=== PATIENT | male | born 1940 | race Caucasian/White ===

== ENCOUNTER 2020-07-20 14:44 | Emergency (ER) | payer MEDICARE, BC ==
[~2020-07-20] VITALS: Ht 177.8 cm; Wt 76.7 kg
--- NOTE | 2020-07-20 14:56 | NUR ---
ARRIVAL PT ARRIVED TO ED WITH C/O LEFT HAND/ARM PAIN. PT REPORTS 3 WEEKS AGO HE GOT A SPLINTER FROM A 2X4 IN HIS HAND AND WAS TREATED WITH ANTIBIOTICS FOR 1 WEEK WHICH HE COMPLETED ON SATURDAY. AREA TO HAND IS CLEAN AND NO S/S OF INFECTION NOTED. BEDSIDE MONITORS APPLIED. VITAL SIGNS STABLE. BED IN LOW LOCKED POSITION.
[2020-07-20 15:05] VITALS: BP_SYST 195; BP_SYST 197; BP_DIAS 82; BP_DIAS 92
[2020-07-20 15:11] VITALS: BP 195/92
--- NOTE | 2020-07-20 15:43 | NUR ---
SHAQUILLE PERDUE ON THE PHONE WITH DOCTOR CORBIN AT THIS TIME.
--- NOTE | 2020-07-20 15:56 | ER.PDOC ---
General Chief Complaint: Extremities Stated Complaint: HAND INJ Time seen by MD: 15:30 Source: patient Exam Limitations: no limitations History of Present Illness Initial Comments This 80-year-old white male was working with some wood and got a splinter in the ulnar aspect of his left hand. The splinter is just proximal to the metacarpophalangeal joint on the ulnar aspect of his hand. He did not go see anybody initially until it started getting red. Then he went to a local clinic where they put him on an antibiotic which he does not remember the name of. He stated that the redness went away very nicely but he still has persistent pain that shoots up his arm if you palpate this scar area. He thinks there are still a foreign body in there that is irritating something.On a quick exam, I actually agree with him I think there is a small splinter maybe about a half a centimeter long and I have a suspicion that it might be laying against the ulnar nerve that goes into his finger. Occurred: other (4-5 weeks) Recent Injury: Yes Where: home Severity: mild Exacerbated By: movement of (touch is most painful) Relieved By: nothing Quality: pain (this will shoot pain up his arm. 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 There is certainly something firm underneath the scar and you can actually push on it and get a little pointing to the skin. I am fairly convinced that he has a retained foreign body.) Skin: color nml, warm/dry Vascular: no vascular compromise Neuro/Psych: sensation nml, motor nml Central Exam: oriented X3, CN's nml as tested, nml speech, nml cognition, nml mood/affect Neck/Back: nml inspection Respiratory: no resp distress, breath sounds nml CVS: reg rate & rhythm, heart sounds nml Abdomen: non-tender, no organomegaly, nml bowels sounds Results/Orders Results/Orders Vital Signs Date Time Temp Pulse Resp B/P (MAP) Pulse Ox O2 Delivery O2 Flow Rate FiO2 07/20/20 15:11 97.9 58 18 195/92 (126) 96 Room Air 07/20/20 15:05 97.9 58 18 96 07/20/20 15:05 97.9 58 18 07/20/20 15:05 97.9 58 18 195/92 (126) 96 Room Air Progress Progress I spoke with Dr. Feldman and he will see the patient tomorrow at 1:00 in the clinic and make a decision on removing this potential foreign body or not. ER DEPART Departure Time of Disposition: 15:57 Disposition: 01 HOME, SELF-CARE Impression: Primary Impression: Puncture wound of left hand with foreign body Additional Impression: HTN (hypertension) Condition: Stable Referrals: PCP,UNKNOWN (PCP) PRIMARY CARE PROVIDER Duration or Time Spent with Pa: 20m Problem Qualifiers HANNY PERDUE MD Jul 20, 2020 15:56
[2020-07-20 16:01] VITALS: BP 181/94
== END 2020-07-20 16:06 | disposition home or self-care (01) ==
LOC: ER 14:44
DX: S61.442A Puncture wound with foreign body of left hand, initial encounter (principal); I10 Essential (primary) hypertension; I25.10 Atherosclerotic heart disease of native coronary artery without angina pectoris; W45.8XXA Other foreign body or object entering through skin, initial encounter; Y93.89 Activity, other specified; Y92.89 Other specified places as the place of occurrence of the external cause; Y99.0 Civilian activity done for income or pay
CPT/HCPCS: 99283

== ENCOUNTER 2020-07-22 08:59 | Day surgery (SDC) | payer MEDICARE, BC ==
[2020-07-22 08:18] VITALS: BP 167/64
[~2020-07-22 08:59] MED LIST: ANCEF ONE; LACTATED RINGERS 1,000 ML IV SCH; LACTATED RINGERS 1,000 ML ONE; NS 100ML 100 ML IV ONE
[2020-07-22] MEDS ORDERED: MULT-235 PO (09:35)
[2020-07-22] MEDS ORDERED: MELO15TA24 PO (09:35)
[2020-07-22] MEDS ORDERED: ATEN25TA PO (09:35)
[2020-07-22] MEDS ORDERED: LORA-60 PO (09:35)
[2020-07-22] MEDS ORDERED: SERT50TA PO (09:35)
[2020-07-22] MEDS ORDERED: LISI20TA21 PO (09:35)
[2020-07-22] MEDS ORDERED: TAMS-14 PO (09:35)
[2020-07-22] MEDS ORDERED: LACTATED RINGERS 1,000 ML IV SCH (10:00)
[2020-07-22] MEDS ORDERED: LIDOCAINE 1% VIAL ONE (11:25)
[2020-07-22] MEDS ORDERED: SODIUM CHLORIDE IRR BOTTLE IR ONE (11:25)
[2020-07-22 12:15] VITALS: BP 159/89
[2020-07-22 12:30] VITALS: BP 167/85
[2020-07-22 12:45] VITALS: BP 162/86
[2020-07-22 13:00] VITALS: BP 160/78
--- NOTE | 2020-07-22 13:02 | OPH ---
DATE OF SURGERY: 07/22/2020 PREOPERATIVE DIAGNOSIS: Foreign body of the left hand. POSTOPERATIVE DIAGNOSIS: Foreign body of the left hand. OPERATIVE PROCEDURE: Removal of foreign body, left hand with incision and debridement. SURGEON: Serge Feldman MD ANESTHESIA: Local. TOURNIQUET TIME: 10 minutes at 300 mmHg. DESCRIPTION OF INDICATIONS: The patient is an 80-year-old male who got a wooden foreign body in his left hand about 3 weeks ago. He had continued to have drainage, purulent material from the entry wound. The patient was seen in my office yesterday and scheduled for I and D today. DESCRIPTION OF PROCEDURE: The patient was placed on the operating table in the supine position. A local anesthetic was injected about the sinus tract of the ulnar border of his left hand. Left upper extremity was then sterilely prepped and draped. The patient had the leg, arm exsanguinated and then the tourniquet was inflated to 300. The patient had a longitudinal elliptical -type incision made on the ulnar border of his hand to excise the sinus tract. The debridement involved skin and subcutaneous tissue. The foreign body was identified and removed. There was a wooden foreign body. It was approximately 3/4 of an inch to 1 inch in length that was removed. The wounds were copiously irrigated and closed with an interrupted 3-0 Ethilon. A compressive dressing was applied. The tourniquet was released. He was sent to recovery in stable condition. Serge Feldman MD DR: NICK/shivam JOB# [id number]
== END 2020-07-22 13:18 | disposition home or self-care (01) ==
LOC: SURG 08:59
PROVIDERS: ATTEND Orthopaedic Surgery
DX: S60.552A Superficial foreign body of left hand, initial encounter (principal); I10 Essential (primary) hypertension; F41.9 Anxiety disorder, unspecified; M19.90 Unspecified osteoarthritis, unspecified site; E89.0 Postprocedural hypothyroidism; Z87.442 Personal history of urinary calculi; Z98.890 Other specified postprocedural states; W45.8XXA Other foreign body or object entering through skin, initial encounter; Y93.89 Activity, other specified; Y92.89 Other specified places as the place of occurrence of the external cause
CPT/HCPCS: 10120; A4217; J0690; J2001; J7050; J7120